=== PATIENT | male | born 1945 | race Caucasian/White ===

== ENCOUNTER → 2016-12-24 | Outpatient (CLI) | payer OTHER ==
[~2016-12-24] MED LIST: ACTOS 30 MG TAB30 M1 PO; AMARYL4 MG PO; ATORVASTATIN CA40 MG PO; CARDIZEM CD120 MG PO; CARDIZEM CD180 MG PO; CEFUROXIME250 MG PO; CINNAMON500 MG PO; DIGOXIN125 MCG PO; DUONEB 2.5-0.5 M3 ML INH; FLOMAX0.4 MG PO; GLUCOPHAGE1000 MG PO; LASIX 80 MG TAB80 MG PO; LEVAQUIN 500 M500 M2 PO; LEVEMIR SUBQ; LOPRESSOR100 M1 PO; LOPRESSOR50 PO; MAGNESIUM400 MG PO; MAGOX 400400 MG PO; METFORMIN HCL500 MG PO; MICARDIS 80 MG80 MG PO; MIRALAX17 GM PO; PACERONE 200 M200 M1 PO; POTASSIUM20 PO; PREDNISONE 20 M20 MG PO; PRILOSEC 20 MG20 MG PO; UNICOMPLEX M TA1 TA1 PO; VITAMIN B-12500 MCG PO; XARELTO20 MG PO; ZOLOFT25 MG PO
== END ==
LOC: HYPER 07:06
DX: I87.333 Chronic venous hypertension (idiopathic) with ulcer and inflammation of bilateral lower extremity (principal); L89.322 Pressure ulcer of left buttock, stage 2; L97.221 Non-pressure chronic ulcer of left calf limited to breakdown of skin; E11.622 Type 2 diabetes mellitus with other skin ulcer; E11.621 Type 2 diabetes mellitus with foot ulcer; L97.511 Non-pressure chronic ulcer of other part of right foot limited to breakdown of skin; L97.821 Non-pressure chronic ulcer of other part of left lower leg limited to breakdown of skin; L97.811 Non-pressure chronic ulcer of other part of right lower leg limited to breakdown of skin; I50.20 Unspecified systolic (congestive) heart failure; J44.9 Chronic obstructive pulmonary disease, unspecified; Z86.711 Personal history of pulmonary embolism; Z86.718 Personal history of other venous thrombosis and embolism; Z86.73 Personal history of transient ischemic attack (TIA), and cerebral infarction without residual deficits; F17.210 Nicotine dependence, cigarettes, uncomplicated

== ENCOUNTER → 2017-02-18 | Outpatient (CLI) | payer OTHER | LOC: HYPER 07:05 | DX: I87.333 Chronic venous hypertension (idiopathic) with ulcer and inflammation of bilateral lower extremity (principal); L97.511 Non-pressure chronic ulcer of other part of right foot limited to breakdown of skin; E11.621 Type 2 diabetes mellitus with foot ulcer; L97.521 Non-pressure chronic ulcer of other part of left foot limited to breakdown of skin; L89.322 Pressure ulcer of left buttock, stage 2; L89.890 Pressure ulcer of other site, unstageable; J44.9 Chronic obstructive pulmonary disease, unspecified; I50.20 Unspecified systolic (congestive) heart failure; Z86.718 Personal history of other venous thrombosis and embolism; Z86.73 Personal history of transient ischemic attack (TIA), and cerebral infarction without residual deficits; Z86.711 Personal history of pulmonary embolism; Z87.891 Personal history of nicotine dependence ==